=== PATIENT | female | born 1990 | race Caucasian/White ===

== ENCOUNTER 2018-08-20 18:40 | Emergency (ER) | payer MEDICAID, OTHER ==
[2018-08-20 18:45] VITALS: BP 154/91; TEMP 97.9; BMI 26.1
[2018-08-20] MEDS ORDERED: DILAUDID 1 MG/ML SYRINGE IM STA (18:52)
[2018-08-20] MEDS ORDERED: PHENERGAN 25 MG/ML VIAL IM STA (18:53)
--- NOTE | 2018-08-20 18:55 | ED.PDOC ---
General ED Provider: Dr. RAMU HASSAN-ER Chief Complaint: Headache Stated Complaint: antonia got a migraine baird(seen with Susan in room at all times) Time Seen by Physician: 18:53 Mode of Arrival: Walk-In Information Source: Patient Exam Limitations: No limitations Primary Care Provider: LISA CONTEH Nursing and Triage Documentation Reviewed and Agree: Yes Does patient meet sepsis criteria?: No System Inflammatory Response Syndrome: Not Applicable Sepsis Protocol: For patient's 13 years and over: Temp is 96.8 and below OR 101 and greater Pulse >90 BPM Resp >20/minute Acutely Altered Mental Status Are patient's symptoms suggestive of a new infection, such as: -Pneumonia -Skin, Soft Tissue -Endocarditis -UTI -Bone, Joint Infection -Implantable Device -Acute Abdominal Infection -Wound Infection -Meningitis -Blood Stream Catheter Infection -Unknown Neurological Complaint Exam - Headache Complaint/Exam Onset: Gradual Duration: 2 days Symptoms Are: Still present Timing: Constant Worst Headache Ever: No Initial Severity: Mild Current Severity: Moderate Location: Diffuse Character: Reports: Dull, Throbbing, Pressure, Typical headache, Migraine Aggravating: Reports: Bright lights Associated Signs and Symptoms: Reports: Nausea Related History: Reports: Similar episode ("just like my other baird") Related Surgical History: Reports: None Temporal Arteritis Risk Factors: Reports: Female, Normal Head CT Within Last 12 Months: No Fundoscopic Exam: Present: Normal Findings Papilledema Present: No Temporal Artery Tenderness: Present: None Sinus Tenderness: Present: None TMJ Tenderness: Present: None Glascow Coma Scale (see protocol): 15 Meningeal Signs Positive: No Pain on Passive Flexion-Positive Kernig's: No ROM Limited In: No Limitiations Focal Weakness: Present: None Focal Sensory Loss: Present: None Gait: Normal Nystagmus Present: No Gag Reflex Present: Yes [id number]: Normal Findings Romberg Test Positive: No Babinski Sign: Negative Right, Negative Left Heel to Toe Normal: Yes Differential Diagnoses: Migraine Review of Systems - Review Of Systems Constitutional: Reports: No symptoms Eyes: Reports: No symptoms Ears, Nose, Mouth, Throat: Reports: No symptoms Respiratory: Reports: No symptoms Cardiac: Reports: No symptoms GI: Reports: Nausea : Reports: No symptoms Musculoskeletal: Reports: No symptoms Skin: Reports: No symptoms Neurological: Reports: Headache Endocrine: Reports: No symptoms Hematologic/Lymphatic: Reports: No symptoms All Other Systems: Reviewed and Negative Past Medical History - Past Medical History Previously Healthy: Yes Endocrine: Reports: Unknown Cardiovascular: Reports: Unknown Respiratory: Reports: Unknown Hematological: Reports: Unknown Gastrointestinal: Reports: Unknown Genitourinary: Reports: Unknown Neuro/Psych: Reports: Migraine Musculoskeletal: Reports: Unknown Cancer: Reports: Unknown - Surgical History General Surgical History: Reports: Unknown - Family History Family History: Reports: Unknown - Social History Smoking Status: Current every day smoker, Heavy tobacco smoker Hx Substance Use: No Alcohol Screening: Occasionally - Immunizations Tetanus Shot up to Date: Yes Physical Exam - Physical Exam Appearance: Well-appearing, No pain distress, Well-nourished Pain Distress: Moderate Eyes: ELIESER ENT: Ears normal, Nose normal, Oropharynx normal Neck: Supple Respiratory: Airway patent, Breath sounds clear, Breath sounds equal, Respirations nonlabored Cardiovascular: RRR, Pulses normal, No rub, No murmur GI/: Soft, Nontender, No masses, Bowel sounds normal, No Organomegaly Musculoskeletal: Normal strength Skin: Warm, Dry, Normal color Neurological: Sensation intact, Motor intact, Reflexes intact, Cranial nerves intact, Alert, Oriented Psychiatric: Affect appropriate, Mood appropriate Re-Evaluation - Re-Evaluation Time of Re-Evaluation: 19:20 Status: Improved Vital Signs Stable: Yes Pain Level: 1 Appearance: NAD Lungs: Clear Skin: Warm and Dry Neuro: Alert and Oriented X3 CV: RRR Critical Care Note - Critical Care Note Total Time (mins): 0 Course - Course Orders, Labs, Meds: Orders Category Date Time Status Hydromorphone HCl [Dilaudid 1 mg/ml Syringe] MEDS 08/20/18 18:52 Discontinued 2 mg IM ONCE STA Promethazine HCl [Phenergan 25 mg/ml Vial] MEDS 08/20/18 18:53 Stat 25 mg IM ONCE STA Medications Generic Name Dose Route Start Last Admin Trade Name Freq PRN Reason Stop Dose Admin Hydromorphone HCl 2 mg 08/20/18 18:52 Dilaudid 1 Mg/Ml Syringe IM 08/20/18 18:53 ONCE STA Promethazine HCl 25 mg 08/20/18 18:53 Phenergan 25 Mg/Ml Vial IM 08/20/18 18:54 ONCE STA Vital Signs: Temp Pulse Resp BP Pulse Ox 08/20/18 18:41 97.9 F 68 16 154/91 H 98 Departure - Departure Time of Disposition: 18:57 Disposition: HOME SELF-CARE Discharge Problem: Migraine Qualifiers: Migraine type: unspecified Status migrainosus presence: without status migrainosus Intractability: not intractable Qualified Code(s): G43.909 - Migraine, unspecified, not intractable, without status migrainosus Instructions: Migraine Headache (ED) Condition: Good Pt referred to PMD for follow-up: Yes IPMP verified?: No Additional Instructions: f/u with pcp Allergies/Adverse Reactions: Allergies Penicillins Allergy (Unverified 08/20/18 18:45) bee venom protein (honey bee) Adverse Reaction (Verified 08/20/18 18:45) Home Medications: Ambulatory Orders Fluticasone Propionate [Flonase Allergy Relief] 9.9 ml NS DAILY 02/01/18 Loratadine [Claritin] 10 mg PO DAILY 02/01/18 Norgestimate-Ethinyl Estradiol [Ortho Tri-Cyclen Lo Tablet] 1 each PO DAILY Disposition Discussed With: Patient
== END 2018-08-20 19:29 | disposition home or self-care (01) ==
LOC: EDSEX 18:40 → ED 18:40
DX: G43.909 Migraine, unspecified, not intractable, without status migrainosus (principal); F17.210 Nicotine dependence, cigarettes, uncomplicated
CPT/HCPCS: 96372; 99282

== ENCOUNTER 2018-12-03 18:27 | Emergency (ER) ==
[2018-12-03 18:39] VITALS: BP 130/91; TEMP 101; BMI 28.3
[2018-12-03] MEDS ORDERED: ZOFRAN 4 MG/2 ML IVP STA (19:34)
[2018-12-03] MEDS ORDERED: SODIUM CHLORIDE 1,000 ML IV STA (19:34)
[2018-12-03] MEDS ORDERED: MOTRIN PO STA (20:04)
--- NOTE | 2018-12-03 20:37 | ED.PDOC ---
General ED Provider: Dr. RAMU HASSAN-ER Chief Complaint: Nausea/Vomiting Stated Complaint: antonia had fever ,[place] and body aches and nausea Time Seen by Physician: 18:30 Mode of Arrival: Walk-In Information Source: Patient Exam Limitations: No limitations Primary Care Provider: LISA CONTEH Nursing and Triage Documentation Reviewed and Agree: Yes Does patient meet sepsis criteria?: Yes If yes, has appropriate treatment been initiated?: Yes System Inflammatory Response Syndrome: Temp 101F or Greater, Not Applicable Sepsis Protocol: For patient's 13 years and over: Temp is 96.8 and below OR 101 and greater Pulse >90 BPM Resp >20/minute Acutely Altered Mental Status Are patient's symptoms suggestive of a new infection, such as: -Pneumonia -Skin, Soft Tissue -Endocarditis -UTI -Bone, Joint Infection -Implantable Device -Acute Abdominal Infection -Wound Infection -Meningitis -Blood Stream Catheter Infection -Unknown GI Complaint Exam - Vomiting/Diarrhea Complaint/Exam Onset/Duration: less than 24hrs Symptoms Are: Still present Initial Severity: Mild Current Severity: Mild Character of Vomiting: Reports: Non-bilious Character of Diarrhea: Reports: Watery Alleviating: Reports: Clear liquids Associated Signs and Symptoms: Reports: Fever Recent Positive Test: No Use of Oral Contraceptives: No Use of Depoprovera: No Compliant With Contraceptive Use: No Kussmaul Respirations Present: No Differential Diagnoses: Other Review of Systems - Review Of Systems Constitutional: Reports: Fever, Weakness Eyes: Reports: No symptoms Ears, Nose, Mouth, Throat: Reports: No symptoms Respiratory: Reports: No symptoms Cardiac: Reports: No symptoms GI: Reports: Diarrhea, Nausea, Vomiting : Reports: No symptoms Musculoskeletal: Reports: No symptoms Skin: Reports: No symptoms Neurological: Reports: No symptoms Endocrine: Reports: No symptoms Hematologic/Lymphatic: Reports: No symptoms All Other Systems: Reviewed and Negative Past Medical History - Past Medical History Previously Healthy: Yes Endocrine: Reports: Unknown Cardiovascular: Reports: Unknown Respiratory: Reports: Unknown Hematological: Reports: Unknown Gastrointestinal: Reports: Unknown Genitourinary: Reports: Unknown Neuro/Psych: Reports: Migraine Musculoskeletal: Reports: Unknown Cancer: Reports: Unknown Last Menstrual Period: now - Surgical History General Surgical History: Reports: Unknown - Family History Family History: Reports: Unknown - Social History Smoking Status: Current every day smoker, Heavy tobacco smoker Hx Substance Use: No Alcohol Screening: Occasionally Physical Exam - Physical Exam Appearance: Well-appearing, No pain distress, Well-nourished Eyes: ELIESER, EOMI, Conjunctiva clear ENT: Ears normal, Nose normal, Oropharynx normal Neck: Supple Respiratory: Airway patent Cardiovascular: RRR GI/: Soft Musculoskeletal: Normal strength Skin: Warm, Dry, Normal color Neurological: Sensation intact Psychiatric: Affect appropriate, Mood appropriate Re-Evaluation - Re-Evaluation Time of Re-Evaluation: 20:37 Status: Improved Vital Signs Stable: Yes Pain Level: 0 Appearance: NAD Lungs: Clear Skin: Warm and Dry Neuro: Alert and Oriented X3 CV: RRR Critical Care Note - Critical Care Note Total Time (mins): 0 Course - Course Hematology/Chemistry: 12/03/18 19:51 12/03/18 19:51 Orders, Labs, Meds: Lab Review 12/03/18 12/03/18 12/03/18 18:45 19:30 19:51 WBC 4.58 L RBC 4.60 Hgb 13.1 Hct 39.9 MCV 86.7 MCH 28.5 MCHC 32.8 RDW Coeff of Ronni 13.7 Plt Count 170 Immature Gran % (Auto) 0.2 Neut % (Auto) 59.8 Lymph % (Auto) 27.7 [place] % (Auto) 8.3 Eos % (Auto) 3.3 Baso % (Auto) 0.7 Immature Gran # (Auto) 0.0 Neut # (Auto) 2.7 Lymph # (Auto) 1.3 [place] # (Auto) 0.4 Eos # (Auto) 0.2 Baso # (Auto) 0.0 Sodium Potassium Chloride Carbon Dioxide Anion Gap BUN Creatinine Estimated GFR (MDRD) BUN/Creatinine Ratio Glucose Lactic Acid Calcium Total Bilirubin AST ALT Alkaline Phosphatase Total Protein Albumin Globulin Albumin/Globulin Ratio Amylase Lipase Procalcitonin Serum , Qual Urine Color Yellow Urine Clarity Clear Urine pH 7.5 Ur Specific [place] 1.020 Urine Protein Negative Urine Glucose (UA) Negative Urine Ketones Negative Urine Blood Negative Urine Nitrite Negative Urine Bilirubin Negative Urine Urobilinogen 0.2 Ur Leukocyte Esterase Negative Influ A Molecular Assay Positive by naat H Influ B Molecular Assay Negative by naat 12/03/18 12/03/18 12/03/18 19:51 19:51 19:51 WBC RBC Hgb Hct MCV MCH MCHC RDW Coeff of Ronni Plt Count Immature Gran % (Auto) Neut % (Auto) Lymph % (Auto) [place] % (Auto) Eos % (Auto) Baso % (Auto) Immature Gran # (Auto) Neut # (Auto) Lymph # (Auto) [place] # (Auto) Eos # (Auto) Baso # (Auto) Sodium 140.4 Potassium 3.65 Chloride 102.9 Carbon Dioxide 24.6 Anion Gap 16.55 BUN 9.1 Creatinine 0.62 Estimated GFR (MDRD) 114.00 BUN/Creatinine Ratio 14.67 Glucose 95.3 Lactic Acid 0.86 Calcium 8.85 Total Bilirubin 0.52 AST 18.8 ALT 22.6 Alkaline Phosphatase 69.0 Total Protein 7.14 Albumin 4.11 Globulin 3.03 Albumin/Globulin Ratio 1.35 Amylase 73.5 Lipase 43.6 Procalcitonin Serum , Qual Negative Urine Color Urine Clarity Urine pH Ur Specific [place] Urine Protein Urine Glucose (UA) Urine Ketones Urine Blood Urine Nitrite Urine Bilirubin Urine Urobilinogen Ur Leukocyte Esterase Influ A Molecular Assay Influ B Molecular Assay 12/03/18 19:51 WBC RBC Hgb Hct MCV MCH MCHC RDW Coeff of Ronni Plt Count Immature Gran % (Auto) Neut % (Auto) Lymph % (Auto) [place] % (Auto) Eos % (Auto) Baso % (Auto) Immature Gran # (Auto) Neut # (Auto) Lymph # (Auto) [place] # (Auto) Eos # (Auto) Baso # (Auto) Sodium Potassium Chloride Carbon Dioxide Anion Gap BUN Creatinine Estimated GFR (MDRD) BUN/Creatinine Ratio Glucose Lactic Acid Calcium Total Bilirubin AST ALT Alkaline Phosphatase Total Protein Albumin Globulin Albumin/Globulin Ratio Amylase Lipase Procalcitonin < 0.05 Serum , Qual Urine Color Urine Clarity Urine pH Ur Specific [place] Urine Protein Urine Glucose (UA) Urine Ketones Urine Blood Urine Nitrite Urine Bilirubin Urine Urobilinogen Ur Leukocyte Esterase Influ A Molecular Assay Influ B Molecular Assay Orders Category Date Time Status IV [ED IV/MEDIPORT/POWERPORT] .ONCE EMERGENCY 12/03/18 19:33 Active AMYLASE Stat LAB 12/03/18 19:51 Completed BLOOD CULTURE (ED ONLY) Stat LAB 12/03/18 19:51 Received CBC W/ AUTO DIFF Stat LAB 12/03/18 19:51 Completed COMPREHENSIVE METABOLIC PANEL Stat LAB 12/03/18 19:51 Completed FLU A/B MOLECULAR Stat LAB 12/03/18 19:30 Completed LACTIC ACID Stat LAB 12/03/18 19:51 Completed LIPASE Stat LAB 12/03/18 19:51 Completed MOLECULAR GROUP A STREP Stat LAB 12/03/18 19:30 Completed PROCALCITONIN Stat LAB 12/03/18 19:51 Completed SERUM Stat LAB 12/03/18 19:51 Completed URINALYSIS C & S IF INDICATED Stat LAB 12/03/18 18:45 Completed 0.9 % Sodium Chloride [Saline Flush] MEDS 12/03/18 19:33 Ordered 1 syr IVF PRN PRN Ibuprofen [Motrin] MEDS 12/03/18 20:04 Discontinued 600 mg PO ONCE STA Ondansetron HCl/Pf [Zofran 4 mg/2 ml] MEDS 12/03/18 19:34 Discontinued 4 mg IVP ONCE STA Sodium Chloride 0.9% [Sodium Chloride] 1,000 ml MEDS 12/03/18 19:34 Discontinued IV BOLUS Medications Generic Name Dose Route Start Last Admin Trade Name Freq PRN Reason Stop Dose Admin Sodium Chloride 1 syr 12/03/18 19:33 12/03/18 19:53 Saline Flush IVF 1 syr PRN PRN Administration To flush IV Discontinued Medications Generic Name Dose Route Start Last Admin Trade Name Freq PRN Reason Stop Dose Admin Sodium Chloride 1,000 mls @ 1,000 mls/hr 12/03/18 19:34 12/03/18 19:53 Sodium Chloride IV 12/03/18 20:33 1,000 mls/hr BOLUS STA Administration Ibuprofen 600 mg 12/03/18 20:04 12/03/18 20:09 Motrin PO 12/03/18 20:05 600 mg ONCE STA Administration Ondansetron HCl 4 mg 12/03/18 19:34 12/03/18 19:55 Zofran 4 Mg/2 Ml IVP 12/03/18 19:35 4 mg ONCE STA Administration Vital Signs: Temp Pulse Resp BP Pulse Ox 12/03/18 18:28 101.0 F H 108 H 20 130/91 H 96 Departure - Departure Time of Disposition: 20:37 Disposition: HOME SELF-CARE Discharge Problem: Influenza A Instructions: Influenza (ED) Condition: Good Pt referred to PMD for follow-up: Yes IPMP verified?: No Additional Instructions: tamiflu 75mg bid x 5 days---zofran 4mg q 4hrs prn #4---clear liquids and advance ---temp control with tylenol or motrin---rdheck in 72hrs if not ijmproving Allergies/Adverse Reactions: Allergies Penicillins Allergy (Verified 12/03/18 18:38) bee venom protein (honey bee) Adverse Reaction (Verified 12/03/18 18:38) Home Medications: Ambulatory Orders Fluticasone Propionate [Flonase Allergy Relief] 9.9 ml NS DAILY 02/01/18 Loratadine [Claritin] 10 mg PO DAILY 02/01/18 Norgestimate-Ethinyl Estradiol [Ortho Tri-Cyclen Lo Tablet] 1 each PO DAILY Disposition Discussed With: Patient, Family
== END 2018-12-03 21:10 | disposition home or self-care (01) ==
LOC: ED 18:27
DX: J11.1 Influenza due to unidentified influenza virus with other respiratory manifestations (principal); F17.210 Nicotine dependence, cigarettes, uncomplicated
CPT/HCPCS: 36415; 80053; 81001; 82150; 83605; 83690; 84145; 84703; 85025; 87040; 87502; 87651; 96361; 96374; 99283

== ENCOUNTER 2018-12-26 21:52 | Emergency (ER) ==
[2018-12-26 22:01] VITALS: BP 135/84; TEMP 98.8; BMI 28.4
--- NOTE | 2018-12-26 22:02 | ED.PDOC ---
General ED Provider: Dr. RAMU GREENFIELD MD Chief Complaint: Headache Stated Complaint: left ear fullness Time Seen by Physician: 21:55 Mode of Arrival: Walk-In Exam Limitations: No limitations Primary Care Provider: LISA CONTEH Nursing and Triage Documentation Reviewed and Agree: Yes Does patient meet sepsis criteria?: No If yes, has appropriate treatment been initiated?: Yes System Inflammatory Response Syndrome: Not Applicable Sepsis Protocol: For patient's 13 years and over: Temp is 96.8 and below OR 101 and greater Pulse >90 BPM Resp >20/minute Acutely Altered Mental Status Are patient's symptoms suggestive of a new infection, such as: -Pneumonia -Skin, Soft Tissue -Endocarditis -UTI -Bone, Joint Infection -Implantable Device -Acute Abdominal Infection -Wound Infection -Meningitis -Blood Stream Catheter Infection -Unknown Review of Systems - Review Of Systems Constitutional: Reports: Other (cough) Eyes: Reports: No symptoms Ears, Nose, Mouth, Throat: Reports: Ear pain Respiratory: Reports: Cough Cardiac: Reports: No symptoms GI: Reports: No symptoms : Reports: No symptoms Musculoskeletal: Reports: No symptoms Skin: Reports: No symptoms Neurological: Reports: No symptoms Endocrine: Reports: No symptoms Hematologic/Lymphatic: Reports: No symptoms All Other Systems: Reviewed and Negative Past Medical History - Past Medical History Previously Healthy: Yes Endocrine: Reports: Unknown Cardiovascular: Reports: Unknown Respiratory: Reports: Unknown Hematological: Reports: Unknown Gastrointestinal: Reports: Unknown Genitourinary: Reports: Unknown Neuro/Psych: Reports: Migraine Musculoskeletal: Reports: Unknown Cancer: Reports: Unknown - Surgical History General Surgical History: Reports: Unknown - Family History Family History: Reports: Unknown - Social History Smoking Status: Current every day smoker, Heavy tobacco smoker Hx Substance Use: No Alcohol Screening: Occasionally Physical Exam - Physical Exam Appearance: Well-appearing, Obese Ill-appearing: Mild Pain Distress: None Eyes: ELIESER, EOMI, Conjunctiva clear ENT: Rhinorrhea, Erythema Neck: Supple Respiratory: Airway patent Cardiovascular: RRR, Pulses normal, No rub, No murmur GI/: Soft, Nontender, No masses, Bowel sounds normal, No Organomegaly Musculoskeletal: Normal strength, ROM intact, No edema, No calf tenderness Skin: Warm, Dry, Normal color Neurological: Sensation intact, Motor intact, Reflexes intact, Cranial nerves intact, Alert, Oriented Psychiatric: Affect appropriate Critical Care Note - Critical Care Note Total Time (mins): 0 Departure - Departure Time of Disposition: 22:30 Disposition: HOME SELF-CARE Discharge Problem: Otitis media Qualifiers: Otitis media type: serous Laterality: left Instructions: Ear Infection (ED) Condition: Good Pt referred to PMD for follow-up: Yes IPMP verified?: No Prescriptions: Sulfamethoxazole/Trimethoprim [Bactrim Ds 800/160 mg] 1 tab PO Q12HR 7 Days #14 tablet NS Allergies/Adverse Reactions: Allergies Penicillins Allergy (Verified 12/26/18 22:01) bee venom protein (honey bee) Adverse Reaction (Verified 12/26/18 22:01) Home Medications: Ambulatory Orders Fluticasone Propionate [Flonase Allergy Relief] 9.9 ml NS DAILY 02/01/18 Loratadine [Claritin] 10 mg PO DAILY 02/01/18 Sulfamethoxazole/Trimethoprim [Bactrim Ds 800/160 mg] 1 tab PO Q12HR 7 Days #14 tablet NS 12/26/18 Sumatriptan Succinate [Imitrex] 25 mg PO DIRECTED 12/26/18 Transfer Form Completed: No Disposition Discussed With: Patient
[2018-12-26] MEDS ORDERED: LIDOCAINE HCL 1% SDV IM STA (22:03)
[2018-12-26] MEDS ORDERED: ROCEPHIN IM STA (22:03)
== END 2018-12-26 22:29 | disposition home or self-care (01) ==
LOC: ED 21:52
DX: G43.909 Migraine, unspecified, not intractable, without status migrainosus (principal); F17.210 Nicotine dependence, cigarettes, uncomplicated
CPT/HCPCS: 99282

== ENCOUNTER 2018-12-29 20:24 | Emergency (ER) ==
[2018-12-29 20:27] VITALS: BP 166/102; TEMP 97.9; BMI 28.3
--- NOTE | 2018-12-29 20:38 | ED.PDOC ---
General ED Provider: Dr. RAMU HASSAN-ER Chief Complaint: Headache Stated Complaint: antonia got a migraine baird Time Seen by Physician: 20:36 Mode of Arrival: Walk-In Information Source: Patient Exam Limitations: No limitations Primary Care Provider: LIBRADO DRAPER Nursing and Triage Documentation Reviewed and Agree: Yes Does patient meet sepsis criteria?: No System Inflammatory Response Syndrome: Not Applicable Sepsis Protocol: For patient's 13 years and over: Temp is 96.8 and below OR 101 and greater Pulse >90 BPM Resp >20/minute Acutely Altered Mental Status Are patient's symptoms suggestive of a new infection, such as: -Pneumonia -Skin, Soft Tissue -Endocarditis -UTI -Bone, Joint Infection -Implantable Device -Acute Abdominal Infection -Wound Infection -Meningitis -Blood Stream Catheter Infection -Unknown Neurological Complaint Exam - Headache Complaint/Exam Onset: Gradual Duration: several hours Symptoms Are: Still present Timing: Constant Worst Headache Ever: No Initial Severity: Mild Current Severity: Moderate Location: Diffuse Character: Reports: Dull, Throbbing, Pressure, Migraine Aggravating: Reports: Bright lights Associated Signs and Symptoms: Denies: Dizziness, Seizure, Nausea, Vomiting, Sinus pressure, Fever, Neck pain, Neck stiffness, Decreased LOC, Visual changes Related History: Reports: Similar episode Related Surgical History: Reports: None SAH Risk Factors: Reports: None Meningitis Risk Factors: Reports: None SDH Risk Factors: Reports: None Temporal Arteritis Risk Factors: Reports: Female, Normal Head CT Within Last 12 Months: Yes Fundoscopic Exam: Present: Normal Findings Papilledema Present: No Temporal Artery Tenderness: Present: None Sinus Tenderness: Present: None TMJ Tenderness: Present: None Glascow Coma Scale (see protocol): 15 Meningeal Signs Positive: No Pain on Passive Flexion-Positive Kernig's: No ROM Limited In: No Limitiations Focal Weakness: Present: None Focal Sensory Loss: Present: None Gait: Normal Nystagmus Present: No Gag Reflex Present: Yes [id number]: Normal Findings Romberg Test Positive: No Babinski Sign: Negative Right, Negative Left Heel to Toe Normal: Yes Differential Diagnoses: Migraine Review of Systems - Review Of Systems Constitutional: Reports: No symptoms Eyes: Reports: No symptoms Ears, Nose, Mouth, Throat: Reports: No symptoms Respiratory: Reports: No symptoms Cardiac: Reports: No symptoms GI: Reports: Nausea : Reports: No symptoms Musculoskeletal: Reports: No symptoms Skin: Reports: No symptoms Neurological: Reports: Headache Endocrine: Reports: No symptoms Hematologic/Lymphatic: Reports: No symptoms All Other Systems: Reviewed and Negative Past Medical History - Past Medical History Previously Healthy: Yes Endocrine: Reports: Unknown Cardiovascular: Reports: Unknown Respiratory: Reports: Unknown Hematological: Reports: Unknown Gastrointestinal: Reports: Unknown Genitourinary: Reports: Unknown Neuro/Psych: Reports: Migraine Musculoskeletal: Reports: Unknown Cancer: Reports: Unknown Last Menstrual Period: 1 month - Surgical History General Surgical History: Reports: Unknown - Family History Family History: Reports: Unknown - Social History Smoking Status: Current every day smoker, Heavy tobacco smoker Hx Substance Use: No Alcohol Screening: Occasionally - Immunizations Tetanus Shot up to Date: Yes Physical Exam - Physical Exam Appearance: Well-appearing, No pain distress, Well-nourished Pain Distress: Moderate Eyes: ELIESER, EOMI, Conjunctiva clear ENT: Ears normal Neck: Supple Respiratory: Airway patent, Breath sounds clear, Breath sounds equal, Respirations nonlabored Cardiovascular: RRR, Pulses normal, No rub, No murmur GI/: Soft, Nontender, No masses, Bowel sounds normal, No Organomegaly Musculoskeletal: Normal strength, ROM intact, No edema, No calf tenderness Skin: Warm, Dry, Normal color Neurological: Sensation intact, Motor intact, Reflexes intact, Cranial nerves intact, Alert, Oriented Psychiatric: Affect appropriate, Mood appropriate Re-Evaluation - Re-Evaluation Time of Re-Evaluation: 20:39 Status: Improved Vital Signs Stable: Yes Pain Level: 1 Appearance: NAD Lungs: Clear Skin: Warm and Dry Neuro: Alert and Oriented X3 CV: RRR Critical Care Note - Critical Care Note Total Time (mins): 0 Course - Course Orders, Labs, Meds: Orders Category Date Time Status Hydromorphone HCl [Dilaudid 1 mg/ml Syringe] MEDS 12/29/18 20:35 Stat 2 mg IM ONCE STA Promethazine HCl [Phenergan 25 mg/ml Vial] MEDS 12/29/18 20:35 Stat 25 mg IM ONCE STA Medications Generic Name Dose Route Start Last Admin Trade Name Freq PRN Reason Stop Dose Admin Hydromorphone HCl 2 mg 12/29/18 20:35 Dilaudid 1 Mg/Ml Syringe IM 12/29/18 20:36 ONCE STA Promethazine HCl 25 mg 02/27/19 20:35 Phenergan 25 Mg/Ml Vial IM 12/29/18 20:36 ONCE STA her baird is similar to usual migraine baird--no more severe or frequent Vital Signs: Temp Pulse Resp BP Pulse Ox 12/29/18 20:24 97.9 F 88 16 166/102 H 98 Departure - Departure Time of Disposition: 20:38 Disposition: HOME SELF-CARE Discharge Problem: Migraine Qualifiers: Migraine type: unspecified Status migrainosus presence: without status migrainosus Intractability: not intractable Qualified Code(s): G43.909 - Migraine, unspecified, not intractable, without status migrainosus Instructions: Migraine Headache (ED) Condition: Good Pt referred to PMD for follow-up: No IPMP verified?: No Additional Instructions: f/u with pcp Allergies/Adverse Reactions: Allergies Penicillins Allergy (Verified 12/29/18 20:27) bee venom protein (honey bee) Adverse Reaction (Verified 12/29/18 20:27) Home Medications: Ambulatory Orders Fluticasone Propionate [Flonase Allergy Relief] 1 inh NS DAILY 02/01/18 Loratadine [Claritin] 10 mg PO DAILY 02/01/18 Sumatriptan Succinate [Imitrex] 25 mg PO DIRECTED 12/26/18 Disposition Discussed With: Patient, Family
[2018-12-29] MEDS: DILAUDID 1 MG/ML SYRINGE IM STA (20:46)
[2018-12-29] MEDS: PHENERGAN 25 MG/ML VIAL IM STA (20:47)
== END 2018-12-29 21:15 | disposition home or self-care (01) ==
LOC: ED 20:24
DX: G43.909 Migraine, unspecified, not intractable, without status migrainosus (principal); F17.210 Nicotine dependence, cigarettes, uncomplicated
CPT/HCPCS: 96372; 99282